=== PATIENT | female | born 2000 ===

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

== ENCOUNTER 2021-12-02 08:27 | Emergency (ER) | payer SELFPAY ==
--- NOTE | 2021-12-02 09:05 | Emergency Department Report ---
ED General Adult HPI - General Chief complaint: Chest Pain Stated complaint: chest pain Time Seen by Provider: 12/02/21 09:00 Source: patient Mode of arrival: Stretcher Limitations: No Limitations - History of Present Illness Initial comments: 21-year-old female presents to the ED via ambulance with complaints chest pain. When evaluating patient states that she has no complaints of chest pain. She states that she was at work and noticed that she started to have some chest pain, headache and nausea. She stated that she thought maybe she was . She states that she took a test and the test was negative. States after calling her boyfriend he informed her to call the ambulance because she could possibly have COVID. Patient stated that she is unvaccinated to the Covid vaccine. Patient state prior to going to work this morning she did smoke marijuana. Patient is alert and oriented x4 . No acute distress noted. No ill appearance noted. Patient has no known medical history - Related Data Allergies Allergy/AdvReac Type Severity Reaction Status Date / Time No Known Allergies Allergy Unverified 10/02/19 21:17 ED Review of Systems ROS: Stated complaint: chest pain Other details as noted in HPI Constitutional: denies: chills, fever Eyes: denies: eye pain, eye discharge, vision change ENT: denies: ear pain, throat pain Respiratory: denies: cough, shortness of breath, wheezing Cardiovascular: denies: chest pain, palpitations Endocrine: no symptoms reported Gastrointestinal: denies: abdominal pain, nausea, diarrhea Genitourinary: denies: urgency, dysuria, discharge Musculoskeletal: denies: back pain, joint swelling, arthralgia Skin: denies: rash, lesions Neurological: denies: headache, weakness, paresthesias Psychiatric: denies: anxiety, depression Hematological/Lymphatic: denies: easy bleeding, easy bruising ED Past Medical Hx - Past Medical History Hx Asthma: Yes - Social History Smoking Status: Current Every Day Smoker Substance Use Type: None ED Physical Exam - General Limitations: No Limitations General appearance: alert, in no apparent distress - Head Head exam: Present: atraumatic, normocephalic - Eye Eye exam: Present: normal appearance - ENT ENT exam: Present: mucous membranes moist - Neck Neck exam: Present: normal inspection - Respiratory Respiratory exam: Present: normal lung sounds bilaterally. Absent: respiratory distress - Cardiovascular Cardiovascular Exam: Present: regular rate, normal rhythm. Absent: systolic m urmur, diastolic murmur, rubs, gallop - GI/Abdominal GI/Abdominal exam: Present: soft, normal bowel sounds - Extremities Exam Extremities exam: Present: normal inspection - Back Exam Back exam: Present: normal inspection - Neurological Exam Neurological exam: Present: alert, oriented X3 - Psychiatric Psychiatric exam: Present: normal affect, normal mood - Skin Skin exam: Present: warm, dry, intact, normal color. Absent: rash ED Course Vital Signs 12/02/21 12/02/21 09:14 09:15 Temperature 99.2 F Pulse Rate 82 Respiratory 20 Rate Blood Pressure 113/60 Blood Pressure 113/62 [Right] O2 Sat by Pulse 96 Oximetry ED Medical Decision Making - Medical Decision Making 21-year-old female presents to the ED via ambulance with complaints chest pain. When evaluating patient states that she has no complaints of chest pain. She states that she was at work and noticed that she started to have some chest pain, headache and nausea. She stated that she thought maybe she was . She states that she took a test and the test was negative. States after calling her boyfriend he informed her to call the ambulance because she could possibly have COVID. Patient stated that she is unvaccinated to the Covid vaccine. Patient state prior to going to work this morning she did smoke marijuana. Patient is alert and oriented x4 . No acute distress noted. No ill appearance noted. Patient has no known medical history. EKG performed showed .normal sinus rhythm ,no ST elevation heart rate 63. She declined chest x-ray at present. Patient discharged and oriented. Patient to follow-up with PCP Critical care attestation.: If time is entered above; I have spent that time in minutes in the direct care of this critically ill patient, excluding procedure time. ED Disposition Clinical Impression: Normal physical examination Chest pain Qualifiers: Chest pain type: other chest pain Qualified Code(s): R07.89 - Other chest pain Disposition: HOME / SELF CARE / HOMELESS Is pt being admited?: No Does the pt Need Aspirin: No Condition: Stable Instructions: Nonspecific Chest Pain, Adult Referrals: PRIMARY CARE, [Primary Care Provider] - 3-5 Days WILIAM RABAGO MD [Staff Physician] - 3-5 Days Forms: Work/School Release Form(ED) Time of Disposition: 09:09
[2021-12-02 09:16] VITALS: BP 113/60
--- NOTE | 2021-12-03 11:37 | Electrocardiograph Report ---
[facility] Test Date: 2021-12-02 Test Time: 08:41:15 Pat Name: RAMONA WU Department: Room: Gender: F Refrigeration Person: ANASTASIIA : 2000 Requested By: HELENA BANEGAS Order Number: [id number] Reading MD: Jim Quintero Measurements Intervals [place] Rate: 71 P: 49 AR: 141 QRS: 64 QRSD: 83 T: 42 QT: 392 QTc: 427 Interpretive Statements Sinus rhythm Unremarkable EKG. No previous ECG available for comparison Electronically Signed On 12-03-2021 11:36:52 EST by Jim Quintero
== END 2021-12-02 09:52 | disposition home or self-care (01) ==
LOC: ED 08:27
DX: R07.89 Other chest pain (principal); J45.909 Unspecified asthma, uncomplicated; F17.200 Nicotine dependence, unspecified, uncomplicated; Z79.899 Other long term (current) drug therapy
CPT/HCPCS: 93005; 93010; 99283